=== PATIENT | male | born 1965 | race Caucasian/White ===

== ENCOUNTER → 2016-03-16 | Outpatient (CLI) | payer OTHER ==
[~2016-03-16] MED LIST: AUGMENTIN875 MG PO; BACTRIM,SEPT1 TABLET PO; DOCUSATE SODIU100 MG PO; HYDROCODON-ACE1 EAC7 PO; LEVEMIR100 UNIT/2 SC; LISINOPRIL20 MG PO; NOVOLIN N100 UNITS/ SC; NOVOLIN,HU100 UNITS1 SC; NOVOLOG 10100 UNITS/ SC; NOVOLOG PE100 UNITS/ SC; NYQUIL D COLD295 ML PO; OXYCODONE HCL5 MG PO; PERCOCET 5/31 TABLET PO; PRAVACHOL20 MG PO; PRAVASTATIN SOD40 MG PO; ROCEPHIN1000 MG IM
== END | disposition home or self-care (01) ==
LOC: PICC 07:48
DX: M86.9 Osteomyelitis, unspecified (principal)
CPT/HCPCS: 76937

== ENCOUNTER 2016-06-08 08:17 | Inpatient (IN) | payer OTHER ==
[~2016-06-08] VITALS: Ht 188 cm; Wt 118.5 kg
[2016-06-08 11:22] VITALS: BP 148/75
[2016-06-08 15:40] VITALS: BP 148/75
[2016-06-08 19:39] VITALS: BP 144/71
[2016-06-08 21:12] LABS: POINT-OF-CARE METER ID UU14188625
[2016-06-09 00:14] VITALS: BP 118/78
[2016-06-09 06:24] LABS: HEMATOCRIT 36.5 % (38.0-50.0); MCH 28.6 PG (29.0-34.0); MCHC 32.3 G/DL (30.0-36.0); MCV 88.4 FL (86-99); PLATELET COUNT 237 K/uL (156-360); RBC DIS.WIDTH-CV 12.9 % (11.8-14.6); RBC DIS.WIDTH-SD 41.6 % (39-53); RED BLOOD COUNT 4.13 M/uL (4.00-5.50)
[2016-06-09 06:32] LABS: ANION GAP 12 MEQ/L (2-14); CHLORIDE 103 MEQ/L (99-109); GFR ESTIMATE (CALCULATED) > 59 mL/min/; GLUCOSE 188 mg/dL (70-99); POTASSIUM 4.2 MEQ/L (3.7-5.4); SAMPLE HEMOLYSIS CHECK 0; SAMPLE ICTERIC CHECK 0; SAMPLE LIPEMIA CHECK 0; SODIUM 140 MEQ/L (136-147); UREA NITROGEN (BUN) 14 mg/dL (9-23)
[2016-06-09 06:37] LABS: WHITE BLOOD COUNT 3.7 K/uL (4.1-10.2)
[2016-06-09 08:14] VITALS: BP 109/59
[2016-06-09 12:20] VITALS: BP 135/86
[2016-06-09 15:38] VITALS: BP 132/69
[2016-06-09 19:48] VITALS: BP 116/67
[2016-06-09 21:26] LABS: POINT-OF-CARE METER ID UU14188625
[2016-06-09 23:53] VITALS: BP 115/69
[2016-06-10 04:24] VITALS: BP 135/67
[2016-06-10 07:26] VITALS: BP 127/66
[2016-06-10 07:28] LABS: POINT-OF-CARE METER ID UU14188625
[2016-06-10 15:18] VITALS: BP 127/62
[2016-06-10 16:30] VITALS: BP 173/72
[2016-06-10 16:32] LABS: POINT-OF-CARE METER ID UU14174225
[2016-06-11] VITALS: BP 129/70
[2016-06-11 05:35] LABS: HEMATOCRIT 36.1 % (38.0-50.0); MCH 28.7 PG (29.0-34.0); MCV 87.2 FL (86-99); PLATELET COUNT 254 K/uL (156-360); RBC DIS.WIDTH-CV 12.7 % (11.8-14.6); RBC DIS.WIDTH-SD 40.4 % (39-53); RED BLOOD COUNT 4.14 M/uL (4.00-5.50); WHITE BLOOD COUNT 3.7 K/uL (4.1-10.2)
[2016-06-11 06:01] LABS: ANION GAP 8 MEQ/L (2-14); CHLORIDE 103 MEQ/L (99-109); GFR ESTIMATE (CALCULATED) > 59 mL/min/; GLUCOSE 174 mg/dL (70-99); SAMPLE HEMOLYSIS CHECK 0; SAMPLE ICTERIC CHECK 0; SAMPLE LIPEMIA CHECK 0; SODIUM 138 MEQ/L (136-147); UREA NITROGEN (BUN) 14 mg/dL (9-23)
[2016-06-11 06:41] LABS: EOSINOPHIL (%) 2.2 % (0-5); EOSINOPHIL COUNT 0.1 K/uL (0-0.3); IMMATURE GRANULOCYTE (%) 0.3 % (0.0-0.7); INSTRUMENT ABS NEUTROPHIL CT 1.9 K/uL; LYMPHOCYTE COUNT 1.3 K/uL (1.0-2.8); MONOCYTE (%) 11.7 % (3-12); MONOCYTE COUNT 0.4 K/uL (0-0.8); NEUTROPHIL (%) 50.5 % (45-76); NEUTROPHIL COUNT 1.9 K/uL (1.8-6.4)
[2016-06-11 07:23] LABS: POINT-OF-CARE METER ID UU14174225
[2016-06-11 07:50] VITALS: BP 127/60
[2016-06-11 11:10] LABS: POINT-OF-CARE METER ID UU14188625
[2016-06-11 15:15] VITALS: BP 138/83
[2016-06-11 22:40] LABS: POINT-OF-CARE USER ID 603211116
[2016-06-12] VITALS: BP 147/73
[2016-06-12 08:29] VITALS: BP 133/89
[2016-06-12 12:03] LABS: POINT-OF-CARE METER ID UU13113675; POINT-OF-CARE USER ID ADMKMM76
[2016-06-12 15:18] VITALS: BP 134/78
[2016-06-12 16:43] LABS: POINT-OF-CARE METER ID UU14188625
[2016-06-12 23:35] VITALS: BP 142/75
[2016-06-13 06:26] LABS: HEMATOCRIT 39.2 % (38.0-50.0); MCH 28.6 PG (29.0-34.0); MCHC 32.7 G/DL (30.0-36.0); MCV 87.5 FL (86-99); MEAN PLAT.VOLUME 9.9 uM^3 (9.0-12.4); PLATELET COUNT 297 K/uL (156-360); RBC DIS.WIDTH-CV 12.8 % (11.8-14.6); RBC DIS.WIDTH-SD 40.4 % (39-53); RED BLOOD COUNT 4.48 M/uL (4.00-5.50)
[2016-06-13 06:27] LABS: WHITE BLOOD COUNT 5.5 K/uL (4.1-10.2)
[2016-06-13 07:18] VITALS: BP 117/65
[2016-06-13] MEDS ORDERED: LEVAQUIN750 MG PO (13:03)
== END 2016-06-13 13:03 | disposition home or self-care (01) | DRG 504 ==
LOC: 5SOUTH 08:17 → 2SOUTH 08:44 → 5SOUTH 11:08
PROVIDERS: Internal Medicine; Physician Assistant Medical
PROC: 0J9R00Z Drainage of Left Foot Subcutaneous Tissue and Fascia with Drainage Device, Open Approach (ICD-10-PCS; 2016-06-08)
PROC: 0Y6S0Z0 Detachment at Left 2nd Toe, Complete, Open Approach (ICD-10-PCS; principal; 2016-06-12)
DX: M86.172 Other acute osteomyelitis, left ankle and foot (principal); E11.52 Type 2 diabetes mellitus with diabetic peripheral angiopathy with gangrene; L97.524 Non-pressure chronic ulcer of other part of left foot with necrosis of bone; E11.621 Type 2 diabetes mellitus with foot ulcer; E11.40 Type 2 diabetes mellitus with diabetic neuropathy, unspecified; E11.42 Type 2 diabetes mellitus with diabetic polyneuropathy; I70.202 Unspecified atherosclerosis of native arteries of extremities, left leg; L03.032 Cellulitis of left toe; E78.5 Hyperlipidemia, unspecified; I10 Essential (primary) hypertension; A49.1 Streptococcal infection, unspecified site; A49.01 Methicillin susceptible Staphylococcus aureus infection, unspecified site; E66.9 Obesity, unspecified; L85.9 Epidermal thickening, unspecified; Z89.431 Acquired absence of right foot; Z68.34 Body mass index [BMI] 34.0-34.9, adult
CPT/HCPCS: 73720; 80048; 81003; 82948; 85025; 85027; 85651; 86140; 87040; 87070; 87075; 87076; 87185; 87205; 88305; 88311; 93926; J1650; J1815; J2250; J2405; J2543; J3010; J3370; J3480